=== PATIENT | female | born 1975 | race Caucasian/White ===

== ENCOUNTER 2022-07-15 13:14 | Outpatient (CLI) | payer MEDICAID, OTHER | END 2022-07-15 13:15 | disposition home or self-care (01) | LOC: TBSIIMAG 13:14 | PROVIDERS: ATTEND Neurological Surgery | DX: M54.16 Radiculopathy, lumbar region (principal); Z98.890 Other specified postprocedural states | CPT/HCPCS: 72100 ==

== ENCOUNTER 2022-08-27 13:05 | Outpatient (CLI) | payer MEDICAID, OTHER | END 2022-08-27 13:06 | disposition home or self-care (01) | LOC: TBSIIMAG 13:05 | PROVIDERS: ATTEND Neurological Surgery | DX: M47.816 Spondylosis without myelopathy or radiculopathy, lumbar region (principal); Z98.890 Other specified postprocedural states | CPT/HCPCS: 72100 ==

== ENCOUNTER 2024-01-11 15:03 | Inpatient (IN) | payer OTHER, MEDICAID ==
[2024-01-12 15:16] VITALS: BMI 42.1
[2024-01-13] MEDS ORDERED: Thrombin 5000 UNITS/5 ML VIAL ONE (06:46)
[2024-01-13] MEDS ORDERED: fentaNYL PF 100 MCG/2 ML SYRINGE ONE ×2 (06:47→09:24)
[2024-01-13] MEDS ORDERED: PROPOFOL 20 ML ONE (06:48)
[2024-01-13] MEDS ORDERED: Lidocaine 1% PF 5 ML VIAL ONE (06:52)
[2024-01-13] MEDS ORDERED: Rocuronium Bromide 10 MG/ML (10ML VIAL) ONE (06:52)
[2024-01-13] MEDS ORDERED: CEFAZOLIN 2 GM VIAL ONE (07:02)
[2024-01-13] MEDS ORDERED: Sodium Chloride 0.9% 100 ML ONE (07:02)
[2024-01-13] MEDS ORDERED: Midazolam HCl 2 mg/2 ml Vial ONE (07:11)
[2024-01-13 07:13] LABS: Hemoglobin 13.7 g/dL (12.0-16.0); Mean Corpuscular HGB CONC 34.3 g/dL (32.0-36.0); Mean Corpuscular Hemoglobin 32.2 pg (27.0-31.0); Mean Corpuscular Volume 94.1 fL (78.0-98.0); Mean Platelet Volume 9.4 fL (7.4-10.4); Platelet Count 191 10x3/uL (130-400); RBC Distribution Width 13.3 % (11.5-14.5); Red Blood Cell (RBC) Count 4.25 mill/uL (4.20-5.40)
[2024-01-13 07:33] LABS: Anion Gap 11 mmol/L (10-20); BUN (Urea Nitrogen) 12 mg/dL (7.0-18.7); Calc. Creatinine Clearance 160 mL/min (70-130); Calcium 8.8 mg/dL (7.8-10.44); Carbon Dioxide 25 mmol/L (22-29); Chloride 105 mmol/L (98-107); Estimated GFR 100; Glucose 100 mg/dL (70-105); Sodium 137 mmol/L (136-145)
[2024-01-13] MEDS ORDERED: Ondansetron PF 4 MG/2 ML Vial ONE (07:49)
[2024-01-13] MEDS ORDERED: Dexamethasone 20 MG/5 ML VIAL ONE (07:49)
[2024-01-13] MEDS ORDERED: Promethazine HCl 25 MG/ML VIAL IM PRN (08:19)
[2024-01-13] MEDS ORDERED: PACU-Morphine 4MG/ML VIAL SLOW IVP PRN (08:19)
[2024-01-13] MEDS ORDERED: HYDROmorphone 2 MG/ML VIAL SLOW IVP PRN (08:19)
[2024-01-13] MEDS ORDERED: Morphine Sulfate 2 MG/ML SYRINGE SLOW IVP PRN (08:19)
[2024-01-13] MEDS ORDERED: Ondansetron HCl/PF 4 MG/2 ML Vial IVP PRN (08:19)
[2024-01-13] MEDS ORDERED: HYDROmorphone 2 MG/ML VIAL ONE (08:27)
[2024-01-13] MEDS ORDERED: SUGAMMADEX SODIUM 200 MG/2 ML VIAL ONE (08:30)
[2024-01-13] MEDS ORDERED: Ondansetron PF 4 MG/2 ML Vial IVP PRN (08:41)
[2024-01-13] MEDS ORDERED: Milk Of Magnesia 30 ML UDCUP PO PRN (08:41)
[2024-01-13] MEDS ORDERED: diphenhydrAMINE 50 MG/ML VIAL IVP PRN (08:41)
[2024-01-13] MEDS ORDERED: Morphine 2 MG/ML VIAL SLOW IVP PRN (08:41)
[2024-01-13] MEDS ORDERED: Mag-Al 1200 mg/1200 mg/30 ML UDCUP PO PRN (08:41)
[2024-01-13] MEDS ORDERED: oxyCODONE/Acetaminophen 5 mg/325 mg Tablet PO PRN (08:44)
[2024-01-13] MEDS ORDERED: traZODone HCl 50 MG TAB PO PRN (08:47)
[2024-01-13] MEDS ORDERED: fentaNYL 50 mcg/mL 1 mL Vial ONE ×2 (09:05→10:02)
[2024-01-13] MEDS ORDERED: Labetalol HCl 100 MG/20 ML VIAL ONE (10:03)
[2024-01-13] MEDS ORDERED: HYDROmorphone 0.5 MG/0.5 ML SYRINGE ONE (10:29)
[2024-01-13] MEDS: Gabapentin 300 MG CAP PO SCH (11:54)
[2024-01-13] MEDS: Sodium Chloride 0.9% 1,000 ML IV SCH (11:54)
[2024-01-13] MEDS: DULoxetine 60 MG CAP PO SCH (11:54)
[2024-01-13] MEDS: Propranolol HCl 20 MG TAB PO SCH (11:55)
[2024-01-13] MEDS: tiZANidine HCl 4 MG TAB PO SCH (12:29)
[2024-01-13] MEDS: CEFAZOLIN 2 GM in Sodium Chloride 0.9% 100 ML IVPB SCH (14:41)
[2024-01-13] MEDS: oxyCODONE/Acetaminophen 5 mg/325 mg Tablet PO PRN (14:42)
[2024-01-13] MEDS: lamoTRIgine 100 MG TAB PO SCH (20:44)
[2024-01-14] MEDS: Dexamethasone 4 mg/ml Vial SLOW IVP SCH (08:33)
[2024-01-14 08:34] VITALS: BP 104/72; TEMP 97.5
== END 2024-01-14 12:00 | disposition home or self-care (01) | DRG 472 ==
LOC: EDSTATUS 15:05 → SURG A 01-13 06:35
PROVIDERS: ADMIT Neurological Surgery; ATTEND Neurological Surgery
PROC: 0RG2070 Fusion of 2 or more Cervical Vertebral Joints with Autologous Tissue Substitute, Anterior Approach, Anterior Column, Open Approach (ICD-10-PCS; principal; 2024-01-13)
PROC: 01N10ZZ Release Cervical Nerve, Open Approach (ICD-10-PCS; 2024-01-13)
PROC: 00NW0ZZ Release Cervical Spinal Cord, Open Approach (ICD-10-PCS; 2024-01-13)
PROC: 0RT30ZZ Resection of Cervical Vertebral Disc, Open Approach (ICD-10-PCS; 2024-01-13)
DX: M48.02 Spinal stenosis, cervical region (principal); M50.021 Cervical disc disorder at C4-C5 level with myelopathy; M50.022 Cervical disc disorder at C5-C6 level with myelopathy; M50.023 Cervical disc disorder at C6-C7 level with myelopathy; M50.121 Cervical disc disorder at C4-C5 level with radiculopathy; M50.122 Cervical disc disorder at C5-C6 level with radiculopathy; M50.123 Cervical disc disorder at C6-C7 level with radiculopathy; F41.9 Anxiety disorder, unspecified; F31.9 Bipolar disorder, unspecified; G89.29 Other chronic pain; F43.10 Post-traumatic stress disorder, unspecified; Z98.890 Other specified postprocedural states; Z98.891 History of uterine scar from previous surgery; Z90.49 Acquired absence of other specified parts of digestive tract; Z98.1 Arthrodesis status; Z98.51 Tubal ligation status; Z90.89 Acquired absence of other organs
CPT/HCPCS: 80048; 85027; C1713; J1100; J1170; J2250; J2405; J2704; J3010; J3490; J7050